=== PATIENT | male | born 1965 | race Caucasian/White ===

== ENCOUNTER 2016-07-14 12:10 | Emergency (ER) | payer OTHER ==
[2016-07-14 13:08] LABS: BASOPHIL 0.6 % (0-2); EOSINOPHIL 7.9 % (0-5); HCT 45.9 % (42.0-52.0); LYMPHOCYTE 26.9 % (15-48); MCH 28.8 pg (25.0-31.0); MCHC 32.7 g/dL (32.0-36.0); MCV 88.3 fL (78.0-100.0); MONOCYTE 6.2 % (0-12); MPV 9.2 fL (6.0-9.5); NEUTROPHIL 58.4 % (41-80); PLT 252 K/uL (150-400); WBC 7.1 K/uL (4.0-10.5)
[2016-07-14 13:30] LABS: CREATININE 0.8 mg/dL (0.7-1.2); POTASSIUM 4.2 mmol/L (3.5-5.1)
== END 2016-07-14 17:15 | disposition other institution (70) ==
LOC: FER 12:10
PROVIDERS: Internal Medicine
DX: K22.2 Esophageal obstruction (principal)
CPT/HCPCS: 36415; 71010; 80048; 84484; 85025; 93005; J2175